=== PATIENT | female | born 1965 | race Caucasian/White ===

== ENCOUNTER → 2018-04-16 07:31 | Outpatient (CLI) | payer OTHER, SELFPAY ==
--- NOTE | 2018-04-16 07:34 | BI_ITS ---
MAMMOGRAPHY - BILATERAL SCREENING REASON FOR EXAM: Female, 53 years old. Routine annual screening examination. PERTINENT HISTORY: Mother with breast cancer. Grandmother with breast cancer. TECHNIQUE: Digital bilateral breast sherri (3D mammographic acquisition) in the CC and MLO projections. 2-D mediolateral oblique (MLO) and craniocaudad (CC) views of both breasts were obtained. CAD: Full Field Digital Mammography with Computer Added Detection was performed. COMPARISON: Comparison is made with prior study dated March 10, 2017 and December 21, 2015. FINDINGS: Breast Composition: The breasts are almost entirely fatty. There are no dominant masses or suspicious calcifications. Stable 3.4 mm x 5.6 mm nodule in the slightly upper lateral portion of the right breast stable appearance of the bilateral axial lymph nodes. No other significant abnormalities are identified. There has been no significant change since the prior study. BI/SCREENING MAMM (CAD), BILAT IMPRESSION: Stable bilateral screening mammogram. Yearly follow-up mammogram recommended. (A) ASSESSMENT CATEGORY: BIRADS Category 2: Benign. A letter regarding these results will be sent to the patient by the facility within 30 days. Approximately 10% of breast cancers are not detected by mammography. A normal mammogram should not delay biopsy of a clinically suspicious abnormality. [id number] Electronically Signed: Grady Hernández MD at 9:14 EST Tel [phone], Service support ,
--- OUTSIDE RECORDS SUMMARY | 2018-06-18 15:11 | XMS RPT_ITS ---
:1965 Author Organization OH[facility] Care Team Providers Name Role Phone CELSA GRULLON (SHUFFLE BOARD OPERATOR) Attending Unavailable CELSA GRULLON (SHUFFLE BOARD OPERATOR) Attending Unavailable Navid Ponce Attending Unavailable Navid Ponce Referring Unavailable Navid Ponce Primary Care Unavailable ASSESSMENT, HEALTH RISK Attending Unavailable ASSESSMENT, HEALTH RISK Referring Unavailable Navid Ponce Primary Care Unavailable PROBLEMS PROBLEMS DATE TYPE CONDITION / CODE ATTENDING STATUS SOURCE 02/28/2018 Active Unknown / CELSA GRULLON Active [facility](Unknown) (SHUFFLE BOARD OPERATOR) Main [place] [facility] PROCEDURES PROCEDURES No Procedure Records FoundRESULTS RESULTS SCREENING MAMM (CAD), Observed: 04/16/2018 Status: F Source: [place] B[place] 7:34 AM [facility] REPOSITORY [facility] Imaging Services [address] [place] [address] SCREENING MAMM (CAD), BILAT MR#: [id number] Acct: [id number] Name: ANDREAS CHICAS Rep #: [id number] : 1965 F 53 From: Grady Hernández MD PCP: Navid Ponce MD Status: REG CLI Study: SCREENING MAMM (CAD), BILAT Date of Exam: 04/16/18 Exam# [id number] Ordering Dr: Curtis Ponce MD MAMMOGRAPHY - BILATERAL SCREENING REASON FOR EXAM: Female, 53 years old. Routine annual screening examination. PERTINENT HISTORY: Mother with breast cancer. Grandmother with breast cancer. TECHNIQUE: Digital bilateral breast sherri (3D mammographic acquisition) in the CC and MLO projections. 2-D mediolateral oblique (MLO) and craniocaudad (CC) views of both breasts were obtained. CAD: Full Field Digital Mammography with Computer Added Detection was performed. COMPARISON: Comparison is made with prior study dated March 10, 2017 and December 21, 2015. FINDINGS: Breast Composition: The breasts are almost entirely fatty. There are no dominant masses or suspicious calcifications. Stable 3.4 mm x 5.6 mm nodule in the slightly upper lateral portion of the right breast stable appearance of the bilateral axial lymph nodes. No other significant abnormalities are identified. There has been no significant change since the prior study. BI/SCREENING MAMM (CAD), BILAT IMPRESSION: Stable bilateral screening mammogram. Yearly follow-up mammogram recommended. (A) ASSESSMENT CATEGORY: BIRADS Category 2: Benign. A letter regarding these results will be sent to the patient by the facility within 30 days. Approximately 10% of breast cancers are not detected by mammography. A normal mammogram should not delay biopsy of a clinically suspicious abnormality. [id number] Electronically Signed: Grady Hernández MD at 9:14 EST Tel [phone], Service support , CC: Navid Ponce MD Fuel Cell Battery Technician: Signed PROGRESS Observed: 02/28/2018 Status: COMPLETED Source: [place] 11:33 AM [facility] [place] REPOSITORY HNO ID: [id number] Author: Luzmaria Copeland Ma Service: (none) Author Type: (none) Type: Progress Notes Filed: 02/28/2018 12:24 PM Note Text: Would you like a employment interviewer present for your visit today? No Luzmaria MCNAIR Observed: 02/28/2018 Status: COMPLETED Source: [place] 11:30 AM [facility] REPOSITORY Office Visit (WOOB) ANDREAS CHICAS ([id number]) 1965 F Date Time Provider Department 02/28/18 11:30 AM CELSA GRULLON (ISAIAH) WOOB During your visit today, we recorded the following information about you: Blood pressure Weight 122/72 116.6 kg Celsa Grullon APRN.CNP 02/28/2018 12:24 PM Signed Andreas Chicas presents today for IUD insertion for contraception. No LMP recorded. Patient is not currently having periods (Reason: IUD). GC/chlamydia: Not done: no risk factors and/or patient declines screening test: negative Side effects including irregular bleeding were discussed with the patient. She understands that it should be removed in 5 years or sooner if she desires a . IUD source: office provided IUD lot #: [id number] Exp date: 07/2020 UNIVERSAL PROTOCOL / SAFETY CHECKLIST Procedure to be performed: Mirena inserted Sign in Communication: Completed Time Out: Team Confirms the Correct Patient, Correct Procedure, Correct Site and Site Marking, Correct Position (if applicable), Prep and Dry Time (if applicable). Time: 1142 Affirmation of Time Out: YES Sign Out Discussion: Completed Celsa Grullon APRN.CNP The uterus sounded to 9 cm and the uterus is Anteverted.. After prepping the cervix with betadine and using sterile technique, the Mirena IUD was inserted without difficulty and the string was cut to 3 cm from the external os of the cervix. Patient tolerated procedure well. PLAN: Patient was advised to observe for signs and symptoms of infection including but not limited to fever, malodorous vaginal discharge and/or pain. She was told to check the string monthly for accurate placement. Bleeding expectations were reviewed. Follow up in one month. Celsa Grullon APRN.CNP Andreas Chicas presents for removal of IUD due to expiration. UNIVERSAL PROTOCOL / SAFETY CHECKLIST Procedure to be performed: IUD removal Sign in Communication: Completed Time Out: Team Confirms the Correct Patient, Correct Procedure, Correct Site and Site Marking, Correct Position (if applicable), Prep and Dry Time (if applicable). Time: 1142 Affirmation of Time Out: YES Sign Out Discussion: Completed Celsa Grullon APRN.CNP PROCEDURE: Speculum placed in vagina, IUD string visualized and grasped with ring forceps. ASSESSMENT/PLAN: IUD removed without difficult and patient tolerated procedure well. Contraception plans: Mirena IUD LOGAN Zhu Ma 02/28/2018 11:23 AM Signed POST IUD INSTRUCTIONS You may have irregular bleeding during the first 3 months of use. You may have mild-severe cramping for the next 48 hours. You may use over the counter medication (Motrin, Tylenol) as needed. Your IUD must be removed or replaced in 3 years if you have a Марина, 5 years if you have a Mirena or Kyleena and 10 years if you have a Paragard. Call my office for signs/symptoms of infection such as severe cramping, fever, or unusual bleeding. Check for string placement as instructed by your doctor. If you have any additional questions, please contact the office. Luzmaria Copeland Ma 02/28/2018 12:24 PM Signed Would you like a employment interviewer present for your visit today? No Luzmaria Copeland Ma Referring Provider: SELF [200] Allergies As of Date: 02/28/2018 (No Known Allergies) Date Reviewed: 02/28/2018 Reviewed by: Celsa Grullon - Fully Assessed Reason for Visit: Insertion Of IUD [291] IUD Removal [1950] Reason For Visit History Recorded Primary Visit Diagnosis:Encounter for removal and reinsertion of IUD [Z30.433] Order(s):HCG QUAL UR B/O [[id number]] Order #: [id number] INSERT INTRAUTERINE DEVICE [[id number]] Order #: [id number] REMOVE INTRAUTERINE DEVICE [[id number]] Order #: [id number] [] levonorgestrel 20 mcg/24 hr (5 years) 1 Each intrauterine device (MIRENA)Disp: Rfl: Prescriptions as of 02/28/2018 Sig: ESCITALOPRAM 10 MG TABLET Take 1 tablet by mouth once d* Problem List As Of Date 02/28/2018 Noted Resolved OVARIAN CYST NEC/NOS [N83.209] INVALID FOR*01/11/2006 Other instructions from your clinician: POST IUD INSTRUCTIONS You may have irregular bleeding during the first 3 months of use. You may have mild-severe cramping for the next 48 hours. You may use over the counter medication (Motrin, Tylenol) as needed. Your IUD must be removed or replaced in 3 years if you have a Марина, 5 years if you have a Mirena or Kyleena and 10 years if you have a Paragard. Call my office for signs/symptoms of infection such as severe cramping, fever, or unusual bleeding. Check for string placement as instructed by your doctor. If you have any additional questions, please contact the office. Prescriptions ordered this encounter Disp Refills Start End LEVONORGESTREL 20 MCG/24 HR (5 YEARS* 02/28/2018 02/28/2018 Route: INTRAUTERINE Medications Discontinued During This Encounter miSOPROStol (CYTOTEC) 200 mcg tablet 4 ta* 0 12/08/2017 02/28/2018 Sig: Insert 2 tables vaginally night prior to procedure and 2 tablets morning of procedure. Disc: Reason for discontinue is not on file. levonorgestrel (MIRENA) 20 mcg/24 ho* 1 Ea* 0 12/10/2012 02/28/2018 Class: In Office Cmt: Lot: [id number] Exp: 04/06 Route: INTRAUTERINE Si Each by INTRAUTERINE route as directed. Disc: Reason for discontinue is not on file. Disposition: Return in about 5 weeks (around 04/04/2018) for Follow Up In 4-6 Weeks. Follow-up and Disposition History Recorded Encounter Status:Closed by CELSA GRULLON on 02/28/18 PROGRESS Observed: 02/28/2018 Status: COMPLETED Source: [place] 11:23 AM [facility] [place] REPOSITORY HNO ID: [id number] Author: Celsa Grullon Service: (none) Author Type: Nurse Practitioner Type: Progress Notes Filed: 02/28/2018 12:24 PM Note Text: Andreas Chicas presents today for IUD insertion for contraception. No LMP recorded. Patient is not currently having periods (Reason: IUD). GC/chlamydia: Not done: no risk factors and/or patient declines screening test: negative Side effects including irregular bleeding were discussed with the patient. She understands that it should be removed in 5 years or sooner if she desires a . IUD source: office provided IUD lot #: [id number] Exp date: 07/2020 UNIVERSAL PROTOCOL / SAFETY CHECKLIST Procedure to be performed: Mirena inserted Sign in Communication: Completed Time Out: Team Confirms the Correct Patient, Correct Procedure, Correct Site and Site Marking, Correct Position (if applicable), Prep and Dry Time (if applicable). Time: 1142 Affirmation of Time Out: YES Sign Out Discussion: Completed Celsa Grullon APRN.CNP The uterus sounded to 9 cm and the uterus is Anteverted.. After prepping the cervix with betadine and using sterile technique, the Mirena IUD was inserted without difficulty and the string was cut to 3 cm from the external os of the cervix. Patient tolerated procedure well. PLAN: Patient was advised to observe for signs and symptoms of infection including but not limited to fever, malodorous vaginal discharge and/or pain. She was told to check the string monthly for accurate placement. Bleeding expectations were reviewed. Follow up in one month. LOGAN Zhu presents for removal of IUD due to expiration. UNIVERSAL PROTOCOL / SAFETY CHECKLIST Procedure to be performed: IUD removal Sign in Communication: Completed Time Out: Team Confirms the Correct Patient, Correct Procedure, Correct Site and Site Marking, Correct Position (if applicable), Prep and Dry Time (if applicable). Time: 1142 Affirmation of Time Out: YES Sign Out Discussion: Completed Celsa Grullon APRN.CNP PROCEDURE: Speculum placed in vagina, IUD string visualized and grasped with ring forceps. ASSESSMENT/PLAN: IUD removed without difficult and patient tolerated procedure well. Contraception plans: Mirena IUD Celsa Grullon APRN.CNP PROGRESS Observed: 02/21/2018 Status: COMPLETED Source: [place] 1:07 PM [facility] [place] REPOSITORY HNO ID: [id number] Author: Celsa Grullon Service: (none) Author Type: Nurse Practitioner Type: Progress Notes Filed: 02/21/2018 3:49 PM Note Text: Would you like a employment interviewer present for your visit today? No Luzmaria Dinorah Nascimento Andreas Chicas is a 53 year old who presents for her annual gynecologic exam - occasional hot flashes. Afternoon hot flash is most bothersome. Has been feeling depressed lately - mother with dementia, increased responsibility with work and family. Thinks depression is due to situation and changing hormones. Menses: no menses - Mirena IUD. Contraception: IUD HPV vaccine: No Last Pap: 2016 normal HPV: negative History of abnormal pap: Yes, 20 years ago Last mammogram: 2016 normal at [facility] Colonoscopy 02/2017 - normal, 10 year interval Sexually active: Yes Time with current partner: long-term Pain with intercourse: No Postcoital bleeding: No Hot flashes: Yes,occasional and slightly increasing - not every day Night sweats: Yes, once Exercise: active lifestyle Diet: balanced Obstetric History T0 L0 SAB0 TAB0 Ectopic0 Multiple0 Live Births0 PAST MEDICAL HISTORY Diagnosis Date - Broken leg right leg tiba - PMH - PAST MEDICAL HISTORY OF problems of her left ovary. 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 No bloating, early satiety, indigestion, or increased flatulence. Bladder: No dysuria, gross hematuria, urinary frequency, urinary urgency, or incontinence Breast: No breast lumps, nipple d/c, overlying skin changes, redness or skin retraction Allergies and current medication updated:Yes EXAM: BP 130/76 Wt 256 lb (116.1kg) GENERAL: pleasant, female in no apparent distress HEENT: Normocephalic, atraumatic, mucus membranes moist and no lesions NECK: Supple, full range of motion, no adenopathy and thyroid normal DERMATOLOGY: Normal, without lesions, non-icteric and non-hirsute BREAST: soft, non-tender, symmetric, no dominant mass, normal nipple-areolar complex, no lymphadenopathy and no nipple discharge CHEST: Normal inspiratory effort ABDOMEN: soft, non-tender and no masses PELVIC: external genitalia normal, normal Bartholin's glands, urethra, Herrings's glands, no vulvar lesions, no cervical lesions, good vaginal support, physiologic discharge present, normal appearing perineal body and perianal region, IUD strings visualized BIMANUAL: uterus normal size, shape and consistency, no adnexal masses and non-tender RECTOVAGINAL: deferred. NEURO: alert and oriented x3,exam grossly non-focal EXTREMITIES: normal ASSESSMENT/PLAN: 1) Health maintenance: Pap/HPV up to date. Mammogram ordered Nutrition, exercise and routine health maintenance exams reviewed. Colon cancer screening: up to date with screening 2. Situational depression - ICD9: 309.0, ICD10: F43.21 - Considering counseling. - ESCITALOPRAM 10 MG TABLET - take at bedtime, may increase dose to 20 mg daily after 4 weeks if needed. 3. Perimenopausal vasomotor symptoms - ICD9: 627.2, ICD10: N95.1 - ESCITALOPRAM 10 MG TABLET 4) Follow up for IUD insertion next week Celsa Grullon APRN.ISAIAH CNOV Observed: 02/21/2018 Status: COMPLETED Source: [place] 1:00 PM [facility] REPOSITORY Office Visit (WOOB) ANDREAS CHICAS ([id number]) 1965 F Date Time Provider Department 02/21/18 1:00 PM CELSA GRULLON (ISAIAH) WOOB During your visit today, we recorded the following information about you: Blood pressure Weight 130/76 116.1 kg Luzmaria Copeland Ma 02/21/2018 12:59 PM Addendum Gissell Grullon APRN.CNP 02/21/2018 3:49 PM Signed Would you like a employment interviewer present for your visit today? No Luzmaria Money Azam Andreas Chicas is a 53 year old who presents for her annual gynecologic exam - occasional hot flashes. Afternoon hot flash is most bothersome. Has been feeling depressed lately - mother with dementia, increased responsibility with work and family. Thinks depression is due to situation and changing hormones. Menses: no menses - Mirena IUD. Contraception: IUD HPV vaccine: No Last Pap: 2016 normal HPV: negative History of abnormal pap: Yes, 20 years ago Last mammogram: 2016 normal at [facility] Colonoscopy 02/2017 - normal, 10 year interval Sexually active: Yes Time with current partner: long-term Pain with intercourse: No Postcoital bleeding: No Hot flashes: Yes,occasional and slightly increasing - not every day Night sweats: Yes, once Exercise: active lifestyle Diet: balanced Obstetric History T0 L0 SAB0 TAB0 Ectopic0 Multiple0 Live Births0 PAST MEDICAL HISTORY Diagnosis Date - Broken leg right leg tiba - PMH - PAST MEDICAL HISTORY OF problems of her left ovary. 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 No bloating, early satiety, indigestion, or increased flatulence. Bladder: No dysuria, gross hematuria, urinary frequency, urinary urgency, or incontinence Breast: No breast lumps, nipple d/c, overlying skin changes, redness or skin retraction Allergies and current medication updated:Yes EXAM: BP 130/76 Wt 256 lb (116.1kg) GENERAL: pleasant, female in no apparent distress HEENT: Normocephalic, atraumatic, mucus membranes moist and no lesions NECK: Supple, full range of motion, no adenopathy and thyroid normal DERMATOLOGY: Normal, without lesions, non-icteric and non-hirsute BREAST: soft, non-tender, symmetric, no dominant mass, normal nipple-areolar complex, no lymphadenopathy and no nipple discharge CHEST: Normal inspiratory effort ABDOMEN: soft, non-tender and no masses PELVIC: external genitalia normal, normal Bartholin's glands, urethra, Herrings's glands, no vulvar lesions, no cervical lesions, good vaginal support, physiologic discharge present, normal appearing perineal body and perianal region, IUD strings visualized BIMANUAL: uterus normal size, shape and consistency, no adnexal masses and non-tender RECTOVAGINAL: deferred. NEURO: alert and oriented x3,exam grossly non-focal EXTREMITIES: normal ASSESSMENT/PLAN: 1) Health maintenance: Pap/HPV up to date. Mammogram ordered Nutrition, exercise and routine health maintenance exams reviewed. Colon cancer screening: up to date with screening 2. Situational depression - ICD9: 309.0, ICD10: F43.21 - Considering counseling. - ESCITALOPRAM 10 MG TABLET - take at bedtime, may increase dose to 20 mg daily after 4 weeks if needed. 3. Perimenopausal vasomotor symptoms - ICD9: 627.2, ICD10: N95.1 - ESCITALOPRAM 10 MG TABLET 4) Follow up for IUD insertion next week Celsa Grullon APRN.SHUFFLE BOARD OPERATOR Referring Provider: SELF [200] Allergies As of Date: 02/21/2018 (No Known Allergies) Date Reviewed: 02/21/2018 Reviewed by: Celsa (Fide Grullon - Fully Assessed Reason for Visit: Insertion Of IUD [291] Primary Visit Diagnosis:Encounter for gynecological examination (general) (routine) without abnormal findings [Z01.419] Other Visit Diagnoses:Encounter for screening mammogram for breast cancer [Z12.31] Situational depression [F43.21] Perimenopausal vasomotor symptoms [N95.1] Order(s):[facility] SCREENING [[id number]] Order #: [id number] FUTURE escitalopram oxalate (LEXAPRO) 10 mg tabletTake 1 tablet by mouth once daily.Disp: 90 tabletRfl: 3 Prescriptions as of 02/21/2018 Sig: MISOPROSTOL 200 MCG TABLET Insert 2 tables vaginally nig* LEVONORGESTREL 20 MCG/24 HR (* 1 Each by INTRAUTERINE route * ESCITALOPRAM 10 MG TABLET Take 1 tablet by mouth once d* Problem List As Of Date 02/21/2018 Noted Resolved OVARIAN CYST NEC/NOS [N83.209] INVALID FOR*01/11/2006 Other instructions from your clinician: Gissell Burks Prescriptions ordered this encounter Disp Refills Start End ESCITALOPRAM 10 MG TABLET 90 t* 3 02/21/2018 Route: ORAL Sig: Take 1 tablet by mouth once daily. Disposition: Return in 1 year (on 02/21/2019) for Annual Exam. Follow-up and Disposition History Recorded Encounter Status:Closed by CELSA GRULLON on 02/21/18 [employer], EMPLOYEE Collected: 12/08/2017 Status: F Source: [place] 8:01 AM [facility] REPOSITORY TYPE CODE TESTS RESULT OUT OF RANGE REFERENCE UNITS LAB L100.1000 4.4-11.0 K/mm3 Normal WBC 5.2 LAB L100.1200 4.2-5.4 M/mm3 Normal RBC 4.63 LAB L100.1300 12.0-15.0 g/dl Normal HGB 13.1 LAB L100.1400 37-47 % Normal HCT 41.7 LAB L100.1500 81-99 fL Normal MCV 90.1 LAB L100.1600 27.0-32.0 pg Normal MCH 28.3 LAB L100.1700 32-36 g/gl Low MCHC 31.4 LAB L100.1810 11.6-14.6 % Normal RDW CV 13.3 LAB L100.1820 35.1-43.9 fl Normal RDW SD 43.5 LAB L100.1900 150-450 K/mm3 Normal PLT 263 LAB L100.2000 6.2-12.0 fl Normal MPV 9.7 LAB L100.2110 47-70 % Normal NEUT% 53.3 LAB L100.2210 19-41 % Normal LY% 34.7 LAB L100.2310 0-10 % Normal MONO% 8.1 LAB L100.2410 0-5 % Normal EO% 2.9 LAB L100.2510 0-1 % Normal BASO% 0.8 LAB L100.2620 2.0-7.7 X10 3/uL Normal Absolute Neut 2.8 LAB L100.2720 0.83-4.51 X10 3/ul Normal Absolute Lymph 1.80 Performed By: #### L100.0200 #### [facility] [address] [place], [address] URINALYSIS, EMPLOYEE Collected: 12/08/2017 Status: F Source: [place] 8:01 AM [facility] REPOSITORY TYPE CODE TESTS RESULT OUT OF RANGE REFERENCE UNITS LAB L400.3000 Yellow COLOR Normal Yellow LAB L400.3050 Clear Normal CLARITY Sl. Cloudy LAB L400.3200 Normal mg/dl Normal GLUCOSE, UR Normal LAB L400.3300 Negative mg/dL Normal BILIRUBIN URINE Negative LAB L400.3400 Negative mg/dl Normal KETONE UR Negative LAB L400.3465 1.002-1.030 Normal SP.GR. DIPSTX 1.015 LAB L400.3550 5.0 - 8.0 pH UR Normal 6.0 LAB L400.3600 Negative mg/dl PROT Normal DIPSTX Negative LAB L400.3700 Normal mg/dl Normal UROBILI Normal LAB L400.3750 Negative Normal NITRITE UR Negative LAB L400.3780 Negative /ul High 10 OCCULT BLOOD-UR LAB L400.3800 Negative /ul High LEUK 25 ESTERASE Performed By: #### L400.0100 #### [facility] [address] [place], [address] NICOTINE URINE DRUG Collected: 12/08/2017 Status: F Source: [place] 8:01 AM [facility] REPOSITORY TYPE CODE TESTS RESULT OUT OF RANGE REFERENCE UNITS LAB L505.6250 TO BE Normal CONFIRMED Result Comment: CONFIRMATORY TESTING FOR ALL POSITIVE URINE DRUG SCREEN RESULTS WILL ONLY BE SENT OUT UPON PHYSICIAN ORDER. The results of Urine Drug Screen methods provide only preliminary analytical test results. A more specific alternate chemical method must be used in order to obtain a confirmed analytical result. Gas chromatography/mass spectrometery (GC/MS) is the preferred confirmatory method. Clinical consideration and professional judgement should be applied to any drug of abuse test result, particularly when preliminary positive results are used. LAB L505.6270 <200 ng/mL Normal COT DRG Negative SCREEN Result Comment: Cotinine is the first-stage metabolite of Nicotine. Performed By: #### L505.6240 #### [facility] [address] [place], [address] EMPLOYEE PROFILE Collected: 12/08/2017 Status: F Source: [place] 8:01 AM [facility] REPOSITORY TYPE CODE TESTS RESULT OUT OF RANGE REFERENCE UNITS LAB L501.0100 74-106 mg/dL Normal GLU 74 Result Comment: Please note revised GLUCOSE reference range effective 2017. LAB L501.1000 7-18 mg/dL Normal BUN 13 LAB L501.1100 0.55-1.02 mg/dL Normal CREAT,SERUM 0.79 Result Comment: The validity of the calculated GFR AND GFRAA in patients over 70 years has not been determined. Clinical correlation is essential. LAB L501.1110 >60 mL/min Normal EST GFR 82 Result Comment: Non- GFR Calc LAB L501.1115 >60 mL/min Normal EST GFR - AA 99 Result Comment: GFR Calc LAB L501.1300 10-20 RATIO Normal BUN/CRE 16.5 LAB L501.1400 2.6-6.0 mg/dL Normal URIC 4.8 Result Comment: The drugs N-Acetylcysteine and Metamizole may falsely depress this assay. LAB L501.1500 6.4-8.2 g/dL Normal T PROT 7.7 LAB L501.1800 3.2-5.0 g/dL Normal ALB 3.5 LAB L501.1950 2.2-4.2 g/dL Normal GLOB 4.2 LAB L501.2000 0.9-2.4 RATIO Low A/G 0.8 LAB L501.2200 8.5-10.1 mg/dL Normal CA 9.1 LAB L501.2300 2.5-4.9 mg/dL Normal PHOS 3.4 LAB L501.4100 15-37 U/L Low AST 14 LAB L501.4305 45-117 U/L Normal ALK P 84 LAB L501.4405 13-56 U/L Normal ALT 25 LAB L501.4600 0.20-1.00 mg/dL Normal T BILI 0.40 LAB L501.4700 0.00-0.30 mg/dL Normal D BILI 0.09 LAB L501.4900 200 mg/dL Normal CHOL 169 Result Comment: <200 mg/dL Desirable 200-240 mg/dL Borderline >240 mg/dL High Risk LAB L501.5000 mg/dL Normal TRIG 62 Result Comment: The drugs N-Acetylcysteine and Metamizole may falsely depress this assay. Serum Triglycerides Reference Interval Normal <150 mg/dL Borderline high 150 - 199 mg/dL High 200 - 499 mg/dL Very High > or = 500 mg/dL LAB L501.5300 136-145 mmol/L Normal NA 141 LAB L501.5600 3.5-5.1 mmol/L Normal K 4.2 LAB L501.5900 98-107 mmol/L Normal CL 106 LAB L501.6100 21.0-32.0 mmol/L Normal CO2 27.0 LAB L501.6200 5-15 Normal 8 GAP LAB L501.6400 mg/dL Normal HDL 56 Result Comment: The drugs N-Acetylcysteine and Metamizole may falsely depress this assay. Reference Range HDL <40 mg/dL Low HDL Cholesterol HDL >or= 60 mg/dL High HDL Cholesterol LAB L501.6475 Normal CHOL:HDL 3.00 LAB L501.6500 0-130 mg/dL Normal LDL 101 LAB L501.6600 5-40 mg/dL Normal VLDL 12 LAB L504.2610 84-246 U/L Normal LDH 206 Performed By: #### L500.2900 #### [facility] [address] [place], [place], [address] ALLERGIES ALLERGIES DATE TYPE / CODE NAME / CODE REACTION SEVERITY SOURCE 03/28/2017 Drug No Known Unknown [facility] Allergy/416 Allergies/B54107 [facility] [id number](SNOM 0388(RXNORM) Repository ED CT) Drug NO [facility]OWN [facility] Class/51064 ALLERGIES [facility] [place] 1003(SNOMED Repository CT) ENCOUNTERS ENCOUNTERS ADMIT/DISCHARGE ACCOUNT ADMITTING ENCOUNTER LOCATION SOURCE NUMBER CLASS 04/16/2018 [id number] Ambulatory [facility] ing:OPBI Repository 02/28/2018/03/01/20 [id number] Ambulatory [address] Repository 02/21/2018/02/23/20 [id number] Ambulatory [address] Repository 12/08/2017 [id number] [facility] ing:EMPH Repository PAYERS PAYERS ENCOUNTER GUARANTOR PAYER SUBSCRIBER SOURCE 04/16/2018 ANDREAS Winslow Primary Insurance:[facility] ANDREAS Winslow Chyna [id number] [facility] MARTYDOB: [facility] [id number] Number: Repository [id number]: [phone] () Date:[id number] [address], [place] [address]QS: CHECK WEBSITE 04/16/2018 Secondary NOT GIVENUNK [place] Insurance:SELF PAY [facility] Number: Effective Repository Date:2018-02-08 12/08/2017 Andreas Winslow Primary NOT GIVENUNK Chyna [id number] Insurance:SELF PAY [place], [place] Number: Effective Repository [phone]: [phone] Date:2017-12-08 [phone] ()
== END ==
PROVIDERS: Family Provider Family Medicine; PCP Family Medicine; Referring Provider Family Medicine; Visit Provider Family Medicine
DX: Z12.31 Encounter for screening mammogram for malignant neoplasm of breast (principal)
CPT/HCPCS: 77063; 77067

== ENCOUNTER → 2019-07-19 11:21 | Outpatient (CLI) | payer OTHER, SELFPAY ==
--- NOTE | 2019-07-19 11:27 | BI_ITS ---
MAMMOGRAPHY - BILATERAL SCREENING REASON FOR EXAM: Female, 54 years old. Routine annual screening examination. PERTINENT HISTORY: Mother with breast cancer. Grandmother with breast cancer. TECHNIQUE: Digital bilateral breast harish (3D mammographic acquisition) in the CC and MLO projections. 2-D mediolateral oblique (MLO) and craniocaudad (CC) views of both breasts were obtained. CAD: Full Field Digital Mammography with Computer Added Detection was performed. COMPARISON: Comparison is made with prior examination dated April 16, 2018 and March 10, 2017. FINDINGS: Breast Composition: The breasts are almost entirely fatty. There are no dominant masses or suspicious calcifications. Stable 3.4 mm x 5.3 mm nodule in the slightly upper lateral portion of the right breast. Stable benign-appearing bilateral axillary lymph nodes. No other significant abnormalities are identified. There has been no significant change since the prior study. BI/SCREEN MAMM (CAD) W/HARISH BILAT IMPRESSION: Stable bilateral screening mammogram. Yearly follow-up mammogram recommended. (A) ASSESSMENT CATEGORY: BIRADS Category 2: Benign. A letter regarding these results will be sent to the patient by the facility within 30 days. Approximately 10% of breast cancers are not detected by mammography. A normal mammogram should not delay biopsy of a clinically suspicious abnormality. [id number] Electronically Signed: Grady Hernández, at 14:20 EDT , Service support ,
== END ==
PROVIDERS: Family Provider Family Medicine; PCP Family Medicine; Visit Provider Nurse Practitioner Family
DX: Z12.31 Encounter for screening mammogram for malignant neoplasm of breast (principal); Z80.3 Family history of malignant neoplasm of breast
CPT/HCPCS: 77063; 77067

== ENCOUNTER → 2021-01-21 13:38 | Outpatient (CLI) | payer OTHER, SELFPAY ==
--- NOTE | 2021-01-21 13:40 | BI_ITS ---
MAMMOGRAPHY - BILATERAL SCREENING REASON FOR EXAM: Female, 56 years old. Routine annual screening examination. PERTINENT HISTORY: Mother with breast cancer. Grandmother with breast cancer. Patient lost 60 pounds since prior study. TECHNIQUE: Digital bilateral breast harish (3D mammographic acquisition) in the CC and MLO projections. 2-D mediolateral oblique (MLO) and craniocaudad (CC) views of both breasts were obtained. CAD: Full Field Digital Mammography with Computer Added Detection was performed. COMPARISON: Comparison is made with prior study dated 07/19/2019 and 04/16/2018. FINDINGS: Breast Composition: The breasts are almost entirely fatty. There are no dominant masses or suspicious calcifications. Stable small benign-appearing bilateral axillary vessels. No other significant abnormalities are identified. There has been no significant change since the prior study. BI/SCRN MAMM (CAD)W/HARISH BILAT IMPRESSION: Stable bilateral screening mammogram. Yearly follow-up mammogram recommended. (A) ASSESSMENT CATEGORY: BIRADS Category 2: Benign. A letter regarding these results will be sent to the patient by the facility within 30 days. Approximately 10% of breast cancers are not detected by mammography. A normal mammogram should not delay biopsy of a clinically suspicious abnormality. [id number] Electronically Signed: Grady Hernández MD at 14:43 EDT , Service support ,
== END ==
PROVIDERS: PCP Family Medicine; Referring Provider Nurse Practitioner Family; Visit Provider Nurse Practitioner Family
DX: Z12.31 Encounter for screening mammogram for malignant neoplasm of breast (principal); Z80.3 Family history of malignant neoplasm of breast
CPT/HCPCS: 77063; 77067

== ENCOUNTER → 2021-09-25 | Outpatient (CLI) | payer OTHER, SELFPAY ==
[2021-09-25 09:33] LABS: Red Blood Cells-Urine 0 SEEN /hpf (0-5)
[2021-09-25 09:44] LABS: Color, Urine Yellow (Yellow); Glucose, Dipstick Normal (Normal); Ketone-Dipstick Negative (Negative); Leukocyte Esterase-Dipstick 500 /ul (Negative); Nitrite-Dipstick Negative (Negative); Occult Blood-Urine Negative /ul (Negative); Protein-Dipstick Negative (Negative); Specific Gravity, Urine 1.015 (1.002-1.030); Urine Bilirubin Dipstick Negative (Negative); Urine Clarity Clear (Clear); Urine Urobilinogen Normal (Normal)
[2021-09-25 09:53] LABS: Bacteria 1+ /hpf (None Seen); Mucous, Urine 1+ /hpf (<or=2+); Squamous Epithelial Cells - UA 0-5 SEEN /hpf (5-10); White Blood Cells 5-10 SEEN /hpf (0-5)
== END | disposition home or self-care (01) ==
LOC: LAB 09:30
PROVIDERS: PCP Family Medicine; Referring Provider Family Medicine; Visit Provider Family Medicine
DX: R31.29 Other microscopic hematuria (principal)
CPT/HCPCS: 81001

== ENCOUNTER → 2022-03-15 | Outpatient (CLI) | payer OTHER, SELFPAY ==
--- NOTE | 2022-03-15 16:27 | BI_ITS ---
MAMMOGRAPHY - BILATERAL SCREENING REASON FOR EXAM: Female, 57 years old. Routine annual screening examination. PERTINENT HISTORY: Mother with breast cancer. Grandmother with breast cancer. TECHNIQUE: Digital bilateral breast harish (3D mammographic acquisition) in the CC and MLO projections. 2-D mediolateral oblique (MLO) and craniocaudad (CC) views of both breasts were obtained. CAD: Full Field Digital Mammography with Computer Added Detection was performed. COMPARISON: Comparison is made with prior study dated 01/13/2021 and 07/19/2019. FINDINGS: Breast Composition: There are scattered areas of fibroglandular density. There are no dominant masses or suspicious calcifications. No other significant abnormalities are identified. There has been no significant change since the prior study. BI/SCRN MAMM (CAD)W/HARISH BILAT IMPRESSION: Stable bilateral screening mammogram. Yearly follow-up mammogram recommended. (A) ASSESSMENT CATEGORY: BIRADS Category 1: Negative. A letter regarding these results will be sent to the patient by the facility within 30 days. Approximately 10% of breast cancers are not detected by mammography. A normal mammogram should not delay biopsy of a clinically suspicious abnormality. [id number] Electronically Signed: Grady Hernández MD at 8:25 EST ,
== END | disposition home or self-care (01) ==
PROVIDERS: PCP Family Medicine; Visit Provider Family Medicine
DX: Z12.31 Encounter for screening mammogram for malignant neoplasm of breast (principal); Z80.3 Family history of malignant neoplasm of breast
CPT/HCPCS: 77063; 77067

== ENCOUNTER → 2023-07-17 | Outpatient (CLI) | payer OTHER, SELFPAY ==
--- NOTE | 2023-07-17 13:08 | BI_ITS ---
MAMMOGRAPHY - BILATERAL SCREENING REASON FOR EXAM: Female, 58 years old. Routine annual screening examination. PERTINENT HISTORY: Mother with breast cancer. Grandmother with breast cancer. TECHNIQUE: Digital bilateral breast harish (3D mammographic acquisition) in the CC and MLO projections. 2-D mediolateral oblique (MLO) and craniocaudad (CC) views of both breasts were obtained. CAD: Full Field Digital Mammography with Computer Added Detection was performed. COMPARISON: Comparison is made with prior study dated March 15, 2022 and January 21, 2021. FINDINGS: Breast Composition: There are scattered areas of fibroglandular density. There are no dominant masses or suspicious calcifications. There is a faint 6.2 mm x 6.3 mm well-defined nodule in the slightly upper lateral aspect of the right breast. Correlation with ultrasound is recommended. Stable small benign-appearing bilateral axillary lymph nodes. No other significant abnormalities are identified. BI/SCRN MAMM (CAD)W/HARISH BILAT IMPRESSION: Faint 6.2 mm x 6.3 mm well-defined nodule in the slightly upper lateral aspect of the right breast. Correlation with ultrasound is recommended. ASSESSMENT CATEGORY: BIRADS Category 0: Incomplete. Need additional imaging evaluation. A letter regarding these results will be sent to the patient by the facility within 30 days. Approximately 10% of breast cancers are not detected by mammography. A normal mammogram should not delay biopsy of a clinically suspicious abnormality. [id number] Electronically Signed: Grady Hernández MD at 14:16 EDT ,
--- NOTE | 2023-07-17 15:34 | US_ITS ---
STUDY: ULTRASOUND BREAST - RIGHT REASON FOR EXAM: Female, 58 years old. Abnormal screening mammogram. TECHNIQUE: Axial and longitudinal images of the RIGHT breast were performed with a high resolution ultrasound transducer. # OF IMAGES: 36 COMPARISON: Comparison is made with prior mammogram dated July 17, 2023. FINDINGS: RIGHT Breast: There is a 6 mm x 6 mm x 4 mm benign appearing lymph node at the 9:00 position of the breast at 4 cm from the nipple. US/Breast Limited Unilateral IMPRESSION: 6 mm x 6 mm x 4 mm benign appearing lymph node at the 9:00 position of the breast at 4 cm from the nipple. Routine mammographic follow-up recommended. ASSESSMENT CATEGORY: BIRADS Category 2: Benign. A letter regarding these results will be sent to the patient by the facility within 30 days. Electronically Signed: Grady Hernández MD at 10:52 EDT ,
== END | disposition home or self-care (01) ==
PROVIDERS: PCP Family Medicine; Referring Provider Family Medicine; Visit Provider Family Medicine
DX: Z12.31 Encounter for screening mammogram for malignant neoplasm of breast (principal); N63.11 Unspecified lump in the right breast, upper outer quadrant
CPT/HCPCS: 76642; 77063; 77067